=== PATIENT | male | born 1950 | race Caucasian/White ===

== ENCOUNTER 2017-04-29 12:09 | Day surgery (SDC) | payer MEDICARE, SELFPAY ==
[2017-04-29] MEDS ORDERED: Lactated Ringers 1,000 ML IV SCH (12:30)
[2017-04-29] MEDS ORDERED: Sodium Chloride 0.9% 10 ML Syringe FLUSH PRN (12:30)
[2017-04-29] MEDS ORDERED: Propofol 200 MG/20 ML SDV ONE ×2 (13:40→14:00)
[2017-04-29] MEDS ORDERED: fentaNYL 100 MCG/2 ML SDV ONE ×2 (13:40→14:00)
[2017-04-29] MEDS ORDERED: Midazolam 1 MG/ML 2 ML SDV ONE ×2 (13:40→14:00)
--- NOTE | 2017-04-29 13:54 | PCM.HPR ---
H & P Addendum review - H & P Addendum Review Date of Original H & P: 04/26/17 Date Reviewed: 04/29/17 Time Reviewed: 13:53 Patient was Examined: No Changes
[2017-04-29] MEDS ORDERED: Lidocaine 2% 5 ML SDV ONE (14:00)
--- NOTE | 2017-04-29 14:46 | PCM.OPNOTE ---
- General Post-Op/Procedure Note Date of Surgery/Procedure: 04/29/17 Operative Procedure(s): EGD with Bx. Colonoscopy with polypectomy Findings: Gastric Ulcer of antrum Colon Polyps Diverticulosis Pre Op Diagnosis: Anemia. FIT positive Post-Op Diagnosis: Same Anesthesia Technique: MAC Primary Surgeon: Mao Gauthier Anesthesia Provider: Marixa Mckee Complications: None Condition: Good Free Text/Narrative:: Intake & Output 04/28/17 04/29/17 04/29/17 22:59 06:59 14:59 Intake Total 400 Balance 400
--- NOTE | 2017-04-30 08:27 | OR ---
Date of Procedure: 04/29/2017 PREOPERATIVE DIAGNOSES: 1. Anemia. 2. Melena. POSTOPERATIVE DIAGNOSES: 1. Gastric ulcer of the antrum. 2. Diverticulosis. 3. Colon polyps. PROCEDURES: 1. Esophagogastroduodenoscopy with biopsy. 2. Colonoscopy with polypectomy. ANESTHESIA: IV sedation. PROCEDURE IN DETAIL: The patient was brought to the procedure room where he was placed on his left side and IV sedation was administered. Oral bite block was placed and the upper endoscope advanced into the esophagus under direct vision without difficulty. Vocal cords were viewed and were normal. The scope was advanced to the third portion of the duodenum. Duodenum and pylorus are normal. In the antrum, there is a healing ulcer with central white base, but no visible vessel or evidence of region of recent bleeding. Biopsies were taken for H. pylori. Photograph was taken. The remaining body and fundus were normal. Retroflexion was normal. Air was removed from the stomach and the scope withdrawn through the remaining esophagus, which appears normal. The patient tolerated this portion of the procedure well. Next, colonoscopy was performed after digital rectal exam was done, which was normal. Colonoscope was inserted and advanced to the level of the cecum without difficulty. Cecal position was confirmed by identifying the appendiceal lumen and ileocecal valve. Prep was good with some diverticulosis stool in the left colon, but visualization was otherwise good. Upon withdrawing the scope, he has an 8 mm sessile polyp at the hepatic flexure that was removed with cautery snare. The transverse colon was normal. At the splenic flexure, there was a 6 mm sessile polyp removed with hot biopsy forceps. The left colon and sigmoid colon had multiple diverticula throughout. Lastly, in the sigmoid colon, he had an 8 mm sessile polyp removed with a cautery snare and retrieved and sent for pathology review. This was located at 35 cm. Rectum was normal and retroflexion was normal. Air was removed and the scope withdrawn. The patient tolerated the procedure well and returned to recovery in stable condition. I spoke with Vj Roberson and patient is on omeprazole and Carafate. Follow up next week for review of pathology report. If the polyps are adenomatous, he should undergo a repeat colonoscopy again in three years. LORRAINE DOUGHERTY MD /[id number]
== END 2017-04-29 16:14 | disposition home or self-care (01) ==
LOC: LL.SDS 12:09
PROVIDERS: ATTEND Surgery
DX: D12.3 Benign neoplasm of transverse colon (principal); D12.5 Benign neoplasm of sigmoid colon; K29.50 Unspecified chronic gastritis without bleeding; K57.30 Diverticulosis of large intestine without perforation or abscess without bleeding; I10 Essential (primary) hypertension; E11.9 Type 2 diabetes mellitus without complications; Z88.0 Allergy status to penicillin; Z79.84 Long term (current) use of oral hypoglycemic drugs; Z79.899 Other long term (current) drug therapy
CPT/HCPCS: 43239; 45384; 45385; J2250; J2704; J3010; J7120; 00813; 88305; 88342

== ENCOUNTER → 2019-03-09 | Outpatient (CLI) | payer MEDICARE, SELFPAY | LOC: LL.SLEEP 12:15 | PROVIDERS: ATTEND Internal Medicine | DX: G47.33 Obstructive sleep apnea (adult) (pediatric) (principal); J44.9 Chronic obstructive pulmonary disease, unspecified; E66.9 Obesity, unspecified | CPT/HCPCS: Q3014 ==

== ENCOUNTER 2021-10-03 09:54 | Emergency (ER) | payer MEDICARE, OTHER ==
[2021-10-03] MEDS ORDERED: Sodium Chloride 0.9% 1,000 ML IV SCH (10:30)
[2021-10-03 11:37] LABS: PTT,PARTIAL THROMBOPLSTIN TIME 24.2 SEC (23.6-29.8)
[2021-10-03 11:45] LABS: ANION GAP 7.7 meq/L (7-15)
== END 2021-10-03 11:30 ==
LOC: LL.ED 09:54
DX: I63.541 Cerebral infarction due to unspecified occlusion or stenosis of right cerebellar artery (principal); I10 Essential (primary) hypertension; E11.9 Type 2 diabetes mellitus without complications; Z88.0 Allergy status to penicillin; Z79.84 Long term (current) use of oral hypoglycemic drugs; Z79.899 Other long term (current) drug therapy; Z86.69 Personal history of other diseases of the nervous system and sense organs
CPT/HCPCS: 70450; 80053; 82550; 83735; 83880; 84484; 85025; 85379; 85610; 85730; 96360; 99284; 99285-25

== ENCOUNTER 2023-08-26 13:47 | Emergency (ER) | payer MEDICARE, OTHER ==
[2023-08-26] MEDS ORDERED: Sodium Chloride 0.9% 10 ML Syringe FLUSH PRN (14:14)
[2023-08-26 14:43] LABS: BASOPHILS ABSOLUTE AUTO 0.05 K/uL (0.00-0.20); BASOPHILS PERCENT AUTO 0.4 % (0.0-2.0); EOSINOPHILS ABSOLUTE AUTO 0.34 K/uL (0.00-0.50); EOSINOPHILS PERCENT AUTO 2.4 % (0.0-5.0); HEMATOCRIT 40.7 % (39.0-49.0); LYMPHOCYTES ABSOLUTE AUTO 1.93 K/uL (0.50-3.50); LYMPHOCYTES PERCENT AUTO 13.6 % (10.0-50.0); MEAN CORPUSCULAR HEMOGLOBIN 28.4 pg (28.2-33.3); MEAN CORPUSCULAR HGB CONC 31.9 g/dL (31.7-36.0); MEAN CORPUSCULAR VOLUME 88.9 fL (84.0-98.0); MONOCYTES ABSOLUTE AUTO 0.95 K/uL (0.00-1.00); MONOCYTES PERCENT AUTO 6.7 % (2.0-14.0); NEUTROPHILS ABSOLUTE AUTO 10.95 K/uL (1.40-7.00); NEUTROPHILS PERCENT AUTO 76.9 % (45.0-80.0); PLATELET COUNT,PLT 356 K/uL (150-350); RED BLOOD CELL COUNT 4.58 M/uL (4.33-5.41); RED CELL DISTRIBUTION WIDTH 14.1 % (11.2-14.1); WHITE BLOOD CELL COUNT,WBC 14.2 K/uL (4.0-10.2)
[2023-08-26 15:05] LABS: MAGNESIUM 1.9 mg/dL (1.8-2.4)
[2023-08-26 15:19] LABS: ALANINE AMINOTRANSFERASE,ALT 26 U/L (12-78); ALBUMIN 3.2 g/dL (3.4-5.0); ALKALINE PHOSPHATASE 140 IU/L (46-116); ANION GAP 7.5 meq/L (7-15); ASPARTATE AMNIOTRANSFERASE,AST 19 U/L (15-37); BILIRUBIN TOTAL 0.8 mg/dL (0.2-1.0); BLOOD UREA NITROGEN,BUN 17 mg/dL (7-18); CALCIUM 8.4 mg/dL (8.5-10.1); CARBON DIOXIDE,CO2 29.5 mmol/L (21.0-32.0); CHLORIDE,CL 100 mmol/L (98-107); GLUCOSE RANDOM 97 mg/dL (70-99); POTASSIUM,K 3.9 mmol/L (3.5-5.1); PROTEIN TOTAL,TP 7.3 g/dL (6.4-8.2); SODIUM,NA 137 mmol/L (136-145)
[2023-08-26 15:20] LABS: ESTIMATED GFR 79 mL/min (>=60)
[2023-08-26] MEDS: Albuterol/Ipratropium 3.0-0.5 MG/3 ML Neb Soln NEB ONE (15:21)
[2023-08-26] MEDS: Iopamidol 612 MG/ML 100 ML Bottle IVPUSH STA (16:45)
== END 2023-08-26 17:20 ==
LOC: LL.ED 13:47
DX: K22.2 Esophageal obstruction (principal); D49.0 Neoplasm of unspecified behavior of digestive system; J44.9 Chronic obstructive pulmonary disease, unspecified; I10 Essential (primary) hypertension; E11.9 Type 2 diabetes mellitus without complications; Z88.8 Allergy status to other drugs, medicaments and biological substances; Z88.0 Allergy status to penicillin; Z79.899 Other long term (current) drug therapy; Z79.82 Long term (current) use of aspirin; Z79.84 Long term (current) use of oral hypoglycemic drugs
CPT/HCPCS: 36415; 71045; 71260; 74177; 80053; 80307; 83735; 83880; 84484; 85025; 93005; 94640; 99284; Q9967; J7620-GY

== ENCOUNTER → 2023-08-26 | Day surgery (SDC) | payer MEDICARE, OTHER ==
[~2023-08-26] MED LIST: Lidocaine 1% 5 ML VIAL ONE; Lidocaine 2% 5 ML SDV ONE; Midazolam 1 MG/ML 2 ML SDV ONE
== END ==
LOC: LL.SDS 15:15
PROVIDERS: ATTEND Surgery
DX: C16.0 Malignant neoplasm of cardia (principal); I10 Essential (primary) hypertension; E11.9 Type 2 diabetes mellitus without complications; Z79.82 Long term (current) use of aspirin; Z79.899 Other long term (current) drug therapy
CPT/HCPCS: 00731; 99100; J2250; J3490